=== PATIENT | male | born 1985 | race Caucasian/White ===

== ENCOUNTER 2025-05-21 15:12 | Emergency (ER) | payer BC ==
[~2025-05-21] VITALS: Ht 165.1 cm; Wt 76.2 kg
[2025-05-21 15:30] VITALS: BP 122/74; PULSE 90; RESP 18; TEMP 98.5; O2SAT 97
[2025-05-21 15:37] VITALS: BP 122/74; PULSE 90; RESP 18; TEMP 98.5; O2SAT 97
[2025-05-21 15:42] LABS: BASOPHIL # 0.1 10^3/uL (0.0-0.1); BASOPHIL % 0.6 % (0.2-1.2); EOSINOPHIL # 0.5 10^3/uL (0.0-0.2); EOSINOPHIL % 5.3 % (0.0-5.0); HEMATOCRIT(ML) 40.9 % (37.0-53.0); IG % 0.20 % (0.00-0.50); LYMPHOCYTES # 2.69 10^3/uL1 (1.0-4.8); LYMPHOCYTES % 30.7 % (24.0-44.0); MEAN CORP HGB 28.9 pg (26-34); MEAN CORP HGB CONCENTRATION 34.0 g/dL (33-36.5); MEAN CORP VOLUME 85.0 fL (78-100); MONOCYTES # 0.6 10^3/uL (0.3-0.8); MONOCYTES % 7.3 % (5.0-12.0); NEUTROPHIL # 4.9 10^3/uL (1.8-7.7); NEUTROPHILS % 55.9 % (41.0-85.0); RED BLOOD CELL 4.81 10^6/uL (4.50-5.90); RED CELL DISTRIBUTION WIDTH 13.5 % (11.5-14.5); WHITE BLOOD CELL 8.8 10^3/uL (4.5-11.0)
[2025-05-21] MEDS ORDERED: TORADOL ONE (15:43)
[2025-05-21] MEDS: TORADOL IM STA (15:54)
[2025-05-21 16:00] LABS: ALANINE AMINOTRANSFERASE(ML) 38 U/L (12-78); ALBUMIN(ML) 4.3 g/dL (3.4-5.0); CREATININE SERUM 1.14 mg/dL (0.59-1.40); EST GFR, NON-AA 71.5 (>/=60)
[2025-05-21] MEDS ORDERED: ETOD400T2 PO (17:21)
[2025-05-21 17:25] VITALS: BP 126/72; PULSE 91; RESP 18; TEMP 98.5; O2SAT 98
== END 2025-05-21 17:35 | disposition home or self-care (01) ==
LOC: ER 15:12
DX: S96.912A Strain of unspecified muscle and tendon at ankle and foot level, left foot, initial encounter (principal); X58.XXXA Exposure to other specified factors, initial encounter; Y93.89 Activity, other specified; Y92.89 Other specified places as the place of occurrence of the external cause; Y99.8 Other external cause status
CPT/HCPCS: 99284; 96372; 73630; 80053; 85025; 36415; 84550; 86140; J1885